=== PATIENT | male | born 1970 | race Caucasian/White ===

== ENCOUNTER 2017-12-29 18:43 | Observation (INO) | payer OTHER ==
[2017-12-29] MEDS ORDERED: ONDANSETRON 4 MG/2 ML VIAL ONE (19:24)
[2017-12-29] MEDS ORDERED: NA CHLORIDE 0.9% 1,000 ML ONE ×2 (19:24→20:58)
[2017-12-29] MEDS ORDERED: PANTOPRAZOLE 40 MG INJ ONE (19:24)
[2017-12-29] MEDS ORDERED: MORPHINE 4 MG/ML SYR ONE (19:24)
[2017-12-29 19:43] LABS: Absolute Lymphocytes (CBC) 0.8 K/uL (0.7-4.9); Absolute Monocytes 0.8 K/uL (0.1-1.3); Basophils % 0.3 % (0-1.3); Eosinophils % 0.2 % (0-4.4); Lymphocytes % 7.1 % (15.3-44.8); MCH 30.6 pg (27.0-35.0); MCV 89.7 fL (80-100); MPV 7.6 fL (7.6-11.3); Monocytes % 7.5 % (3.3-12.3); RBC Red Blood Cell Count 5.35 M/uL (4.33-5.43)
[2017-12-29 19:59] LABS: Albumin 4.1 g/dL (3.4-5.0); Bilirubin Direct 2.6 mg/dL (0-0.2); Bilirubin Total 4.7 mg/dL (0.2-1.0); Potassium 3.9 mmol/L (3.5-5.1); Protein, Total 8.3 g/dL (6.4-8.2)
--- NOTE | 2017-12-29 20:50 | ER ---
Nurse's Notes [facility] Name: Addison Marquez Age: 47 yrs Sex: Male : 1970 Arrival Date: 12/29/2017 Time: 18:46 Bed 5 Private MD: Diagnosis: Cholelithiasis;Abnormal results of liver function studies Presentation: 12/29 18:49 Presenting complaint: Patient states: RUQ abdominal pain that started yesterday. Seen aj by Dr Radford today and had ultrasound, MRI, Upper GI, and Hyda scan today. Transition of care: patient was not received from another setting of care. Onset of symptoms was December 27, 2017. Risk Assessment: Do you want to hurt yourself or someone else? Patient reports no desire to harm self or others. Initial Sepsis Screen: Does the patient meet any 2 criteria? No. Patient's initial sepsis screen is negative. Does the patient have a suspected source of infection? No. Patient's initial sepsis screen is negative. Care prior to arrival: None. 18:49 Method Of Arrival: Ambulatory aj 18:49 Acuity: SHAYAN 3 aj Triage Assessment: 18:53 General: Appears in no apparent distress. uncomfortable, Behavior is calm, cooperative, aj appropriate for age. Pain: Complains of pain in right upper quadrant. Neuro: Level of Consciousness is awake, alert, obeys commands, Oriented to person, place, time, situation, Appropriate for age. Respiratory: Airway is patent Respiratory effort is even, unlabored, Respiratory pattern is regular, symmetrical. GI: Abdomen is flat, non-distended, Reports upper abdominal pain. Derm: Skin is intact, is healthy with good turgor, Skin is pink, warm \T\ dry. normal. Historical: - Allergies: 18:53 No Known Allergies; aj - Home Meds: 18:53 verapamil 120 mg Oral C24P 1 cap once daily [Active]; Dexilant 60 mg oral CpDB 1 cap aj once daily [Active]; losartan-hydrochlorothiazide 100-12.5 mg oral tab once daily [Active]; sucralfate 1 gram Oral tab 1 tab 4 times per day [Active]; GI Cocktail [Active]; - PMHx: 18:53 Hypertension; aj - PSHx: 18:53 Hernia repair; Tonsillectomy; aj - Immunization history:: Adult Immunizations up to date. - Social history:: Smoking status: Patient/guardian denies using tobacco, Patient uses alcohol, on a daily basis. - Ebola Screening: : Patient negative for fever greater than or equal to 101.5 degrees Fahrenheit, and additional compatible Ebola Virus Disease symptoms Patient denies exposure to infectious person Patient denies travel to an Ebola-affected area in the 21 days before illness onset No symptoms or risks identified at this time. Screenin:08 Abuse screen: Denies threats or abuse. Denies injuries from another. Nutritional bp screening: No deficits noted. Tuberculosis screening: No symptoms or risk factors identified. Fall Risk None identified. Assessment: 19:00 General: Appears in no apparent distress. uncomfortable, Behavior is cooperative, bp appropriate for age, anxious. Pain: Complains of pain in right upper quadrant. Neuro: Level of Consciousness is awake, alert, obeys commands, Oriented to person, place, time, situation, Appropriate for age. Cardiovascular: No deficits noted. Respiratory: Airway is patent Respiratory effort is even, unlabored, Respiratory pattern is regular, symmetrical. GI: Bowel sounds present X 4 quads. Abd is soft X 4 quads. : No signs and/or symptoms were reported regarding the genitourinary system. EENT: No deficits noted. Derm: No deficits noted. Musculoskeletal: Circulation, motion, and sensation intact. Range of motion: intact in all extremities. 21:00 Reassessment: ALL CURRENT ORDERS COMPLETED, ADMIT IN PROCESS. bp 22:19 Reassessment: ADMIT COMPLETED, PT ADMIT TO 211 FOR CHOLELITHIASIS. bp Vital Signs: 18:53 BP 132 / 94; Pulse 103; Resp 20; Temp 97.8; Pulse Ox 98% on R/A; Weight 99.79 kg; aj Height 6 ft. 0 in. (182.88 cm); 19:08 BP 126 / 94; Pulse 97; Resp 18; Pulse Ox 98% ; bp 20:08 BP 119 / 85; Pulse 98; Resp 14; Pulse Ox 98% ; bp 20:41 BP 121 / 95; Pulse 94; Resp 18; Pulse Ox 99% on R/A; mt 22:17 BP 94 / 58; Pulse 119; Resp 16; Pulse Ox 94% ; bp 18:53 Body Mass Index 29.84 (99.79 kg, 182.88 cm) ED Course: 18:46 Patient arrived in ED. mr 18:51 Triage completed. aj 18:52 [facility]ido FNP[facility]C [facility] kb 18:52 Abimael Moreno MD is Attending Physician. kb 18:53 Arm band placed on right wrist. Patient placed in an exam room. aj 19:06 Angelo Aragon, RN is Primary Nurse. bp 19:16 Inserted saline lock: 20 gauge in right upper arm, using aseptic technique. Blood bp collected. 20:08 Patient has correct armband on for positive identification. Bed in low position. Call bp light in reach. Side rails up X2. Adult w/ patient. 20:49 Ricardo Mercado MD is Hospitalizing Provider. kb 22:16 No provider procedures requiring assistance completed. Patient admitted, IV remains in bp place. Administered Medications: 19:23 Drug: NS 0.9% 1000 ml Route: IV; Rate: 1000 ml; Site: right upper arm; lp1 20:30 Follow up: IV Status: Completed infusion; IV Intake: 1000ml bp 19:23 Drug: Zofran 4 mg Route: IVP; Site: right upper arm; lp1 20:05 Follow up: Response: Nausea is decreased bp 19:23 Drug: ProTONIX 40 mg Route: IVP; Site: right upper arm; lp1 20:05 Follow up: Response: Nausea is decreased bp 19:23 Drug: morphine 4 mg Route: IVP; Site: right upper arm; lp1 20:05 Follow up: Response: Pain is decreased bp 20:59 Drug: NS 0.9% 1000 ml Route: IV; Rate: 125 ml/hr; Site: right upper arm; bp 22:35 Follow up: IV Status: Infusion continued upon admission; IV Intake: 150ml bp 21:00 Drug: Zosyn 3.375 grams Route: IVPB; Infused Over: 60 mins; Site: right upper arm; bp 22:00 Follow up: IV Status: Completed infusion; IV Intake: 100ml bp Intake: 20:30 IV: 1000ml; Total: 1000ml. bp 22:00 IV: 100ml; Total: 1100ml. bp 22:35 IV: 150ml; Total: 1250ml. bp Outcome: 20:49 Decision to Hospitalize by Provider. kb 22:19 Condition: stable bp 22:19 Instructed on the need for admit. 22:34 Admitted to [facility]/surg accompanied by tech, family with patient, via wheelchair, room bp 211, with chart, Report called to EMILY NEWTON 22:35 Patient left the ED. bp Signatures: Kate Garrido, DELORES HALL-Lisa Roy, RN RN Bernadine Barr mr Jaky Dalal RN RN lp1 Tessa Schwartz mt, Brian, RN RN bp
--- NOTE | 2017-12-29 20:50 | EDPHYS ---
Physician Documentation [facility] Name: Addison Marquez Age: 47 yrs Sex: Male : 1970 Arrival Date: 12/29/2017 Time: 18:46 Bed 5 Private MD: ED Physician Abimael Moreno HPI: 12/29 19:45 This 47 yrs old Male presents to ER via Ambulatory with complaints of kb Abdominal Pain. 19:45 The patient presents with abdominal pain in the right upper quadrant. Onset: The kb symptoms/episode began/occurred 20 day(s) ago. The symptoms do not radiate. Associated signs and symptoms: Pertinent positives: nausea, Pertinent negatives: anorexia, blood in stools, chest pain, constipation, diarrhea, dysuria, fever, headache, hematuria, palpitations, shortness of breath, testicular pain, vomiting, vomiting blood. The symptoms are described as waxing/waning. Modifying factors: The symptoms are alleviated by nothing, the symptoms are aggravated by food, pressure. Severity of pain: At its worst the pain was moderate in the emergency department the pain is unchanged. The patient has not experienced similar symptoms in the past. The patient has been recently seen by a physician:. 20:50 Pain originally started on 12/09/17. Has had multiple studies, including HIDA scan kb (normal), labs, upper gi (gastritis, hiatal hernia), and MRCP (cholelithiasis). MRCP and upper GI were done today. Malina is pt's GI and Zakia is pt's surgeon. Has appt with Zakia at 1300 tomorrow. Historical: - Allergies: 18:53 No Known Allergies; aj - Home Meds: 18:53 verapamil 120 mg Oral C24P 1 cap once daily [Active]; Dexilant 60 mg oral CpDB 1 cap aj once daily [Active]; losartan-hydrochlorothiazide 100-12.5 mg oral tab once daily [Active]; sucralfate 1 gram Oral tab 1 tab 4 times per day [Active]; GI Cocktail [Active]; - PMHx: 18:53 Hypertension; aj - PSHx: 18:53 Hernia repair; Tonsillectomy; aj - Immunization history:: Adult Immunizations up to date. - Social history:: Smoking status: Patient/guardian denies using tobacco, Patient uses alcohol, on a daily basis. - Ebola Screening: : Patient negative for fever greater than or equal to 101.5 degrees Fahrenheit, and additional compatible Ebola Virus Disease symptoms Patient denies exposure to infectious person Patient denies travel to an Ebola-affected area in the 21 days before illness onset No symptoms or risks identified at this time. ROS: 19:45 Constitutional: Negative for fever, chills, and weight loss, Cardiovascular: Negative kb for chest pain, palpitations, and edema, Respiratory: Negative for shortness of breath, cough, wheezing, and pleuritic chest pain, Back: Negative for injury and pain, : Negative for injury, bleeding, discharge, and swelling, MS/Extremity: Negative for injury and deformity, Skin: Negative for injury, rash, and discoloration, Neuro: Negative for headache, weakness, numbness, tingling, and seizure. 19:45 Abdomen/GI: Positive for abdominal pain, nausea, Negative for vomiting, diarrhea, constipation, abdominal cramps, abdominal distension, anorexia. Exam: 19:45 Constitutional: This is a well developed, well nourished patient who is awake, alert, kb and in no acute distress. Head/Face: Normocephalic, atraumatic. Chest/axilla: Normal chest wall appearance and motion. Nontender with no deformity. No lesions are appreciated. Cardiovascular: Regular rate and rhythm with a normal S1 and S2. No gallops, murmurs, or rubs. Normal PMI, no JVD. No pulse deficits. Respiratory: Lungs have equal breath sounds bilaterally, clear to auscultation and percussion. No rales, rhonchi or wheezes noted. No increased work of breathing, no retractions or nasal flaring. Back: No spinal tenderness. No costovertebral tenderness. Full range of motion. Skin: Warm, dry with normal turgor. Normal color with no rashes, no lesions, and no evidence of cellulitis. MS/ Extremity: Pulses equal, no cyanosis. Neurovascular intact. Full, normal range of motion. Neuro: Awake and alert, GCS 15, oriented to person, place, time, and situation. Cranial nerves II-XII grossly intact. Motor strength 5/5 in all extremities. Sensory grossly intact. Cerebellar exam normal. Normal gait. 19:45 Abdomen/GI: Inspection: abdomen appears normal, Bowel sounds: normal, in all quadrants, Palpation: soft, in all quadrants, moderate abdominal tenderness, in the right upper quadrant. Vital Signs: 18:53 BP 132 / 94; Pulse 103; Resp 20; Temp 97.8; Pulse Ox 98% on R/A; Weight 99.79 kg; aj Height 6 ft. 0 in. (182.88 cm); 19:08 BP 126 / 94; Pulse 97; Resp 18; Pulse Ox 98% ; bp 20:08 BP 119 / 85; Pulse 98; Resp 14; Pulse Ox 98% ; bp 20:41 BP 121 / 95; Pulse 94; Resp 18; Pulse Ox 99% on R/A; mt 22:17 BP 94 / 58; Pulse 119; Resp 16; Pulse Ox 94% ; bp 18:53 Body Mass Index 29.84 (99.79 kg, 182.88 cm) aj MDM: 18:56 Patient medically screened. kb 19:45 Data reviewed: vital signs, nurses notes. Data interpreted: Pulse oximetry: on room air kb is 98 %. Interpretation: normal. 20:48 Counseling: I had a detailed discussion with the patient and/or guardian regarding: the kb historical points, exam findings, and any diagnostic results supporting the discharge/admit diagnosis, lab results, radiology results, the need for further work-up and treatment in the hospital. 21:03 Physician consultation: Ricardo Mercado MD was contacted at 21:03, regarding admission, kb to the medical/surgical unit. patient's condition, in the emergency department to see patient at 21:04. 21:07 Physician consultation: Eliezer Koehler MD was contacted at 20:50, regarding consult, patient's condition, Dr Robbins spoke with Dr Koehler. 12/29 19:10 Order name: Basic Metabolic Panel; Complete Time: 20:06 kb 12/29 19:10 Order name: CBC with Diff; Complete Time: 19:48 kb 12/29 19:10 Order name: Hepatic Function; Complete Time: 20:06 kb 12/29 19:10 Order name: Lipase; Complete Time: 20:06 kb 12/29 19:10 Order name: IV Saline Lock; Complete Time: 19:15 kb 12/29 19:10 Order name: Labs collected and sent; Complete Time: 19:15 kb 12/29 21:07 Order name: CONS Physician Consult EDMS Administered Medications: 19:23 Drug: NS 0.9% 1000 ml Route: IV; Rate: 1000 ml; Site: right upper arm; lp1 20:30 Follow up: IV Status: Completed infusion; IV Intake: 1000ml bp 19:23 Drug: Zofran 4 mg Route: IVP; Site: right upper arm; lp1 20:05 Follow up: Response: Nausea is decreased bp 19:23 Drug: ProTONIX 40 mg Route: IVP; Site: right upper arm; lp1 20:05 Follow up: Response: Nausea is decreased bp 19:23 Drug: morphine 4 mg Route: IVP; Site: right upper arm; lp1 20:05 Follow up: Response: Pain is decreased bp 20:59 Drug: NS 0.9% 1000 ml Route: IV; Rate: 125 ml/hr; Site: right upper arm; bp 22:35 Follow up: IV Status: Infusion continued upon admission; IV Intake: 150ml bp 21:00 Drug: Zosyn 3.375 grams Route: IVPB; Infused Over: 60 mins; Site: right upper arm; bp 22:00 Follow up: IV Status: Completed infusion; IV Intake: 100ml bp Disposition: 12/29/17 20:49 Hospitalization ordered by Ricardo Mercado for Observation. Preliminary diagnosis are Cholelithiasis, Abnormal results of liver function studies. - Bed requested for Telemetry/MedSurg (observation). - Status is Observation. bp - Condition is Stable. - Problem is new. - Symptoms are unchanged. UTI on Admission? No Addendum: 01/01/2018 19:04 Co-signature as Attending Physician, Abimael Moreno MD. r n Signatures: Dispatcher [employer] [facility] Kate Garrido, ISABEL-C HOME [employer]ER[employer]Y TEACHER-Tracee Pope RN RN kl Myers, Amanda, RN RN aj Nieto, Roman, MD MD rn Pena, Laura RN RN lp1 Angelo Aragon RN RN bp Corrections: (The following items were deleted from the chart) 12/29 21:43 20:49 Hospitalization Ordered by Ricardo Mercado MD for Observation. Preliminary kl diagnosis is Cholelithiasis; Abnormal results of liver function studies. Bed requested for Telemetry/MedSurg (observation). Status is Observation. Condition is Stable. Problem is new. Symptoms are unchanged. UTI on Admission? No. kb 22:35 21:43 12/29/2017 20:49 Hospitalization Ordered by Ricardo Mercado MD for Observation. bp Preliminary diagnosis is Cholelithiasis; Abnormal results of liver function studies. Bed requested for Telemetry/MedSurg (observation). Status is Observation. Condition is Stable. Problem is new. Symptoms are unchanged. UTI on Admission? No. kl
[2017-12-29] MEDS ORDERED: PIPER/TAZO/NS 3.375gm 3.375 GM/100 ML BAG ONE (20:58)
--- NOTE | 2017-12-29 21:29 | P.HP ---
Certification for Inpatient Patient admitted to: Inpatient With expected LOS: >2 Midnights Practitioner: I am a practitioner with admitting privileges, knowledge of patient current condition, hospital course, and medical plan of care. Services: Services provided to patient in accordance with Admission requirements found in Title 42 Section 412.3 of the Code of Federal Regulations Patient History Date of Service: 12/29/17 Reason for admission: Abdominal pain, abnormal liver enzymes, cholelithiasis History of Present Illness: Mr Marquez is a 47-year-old male with history of hypertension who start about 20 days ago with right upper quadrant pain the pain was described dull with cramps exacerbation. The pain was radiating to epigastric area and lower abdomen. He was associated with nausea but no vomiting or diarrhea. In the laboratory work he had abnormal liver enzymes. The patient went to see his at [place], he order a abdominal ultrasound which was positive for mild thickening of the gallbladder wall, sludge without signs of duct obstruction. Subsequently the patient had a HIDA scan which was negative. Since his symptoms continue getting worse, especially after eating greasy food, he was referred to see a GI specialist. He went to see Dr. Radford who performed an EGD , which according to the patient it was positive for hiatal hernia and mild gastritis. Subsequently the patient went to see a doctor lars [facility] order a MRCP. It was remarkable for cholelithiasis without sign of duct obstruction. Lab work from today was remarkable for total bilirubin 4.7, elevated transaminase and alk-phos. No fever or chills reported. Home medications list reviewed: Yes - Past Medical/Surgical History -: Hypertension - Family History Family History: Reviewed- Non-Contributory - Social History Smoking Status: Former smoker Alcohol use: Yes CD- Drugs: No Place of Residence: Home Review of Systems 10-point ROS is otherwise unremarkable Physical Examination - Physical Exam General: Alert, In no apparent distress HEENT: Atraumatic, PERRLA, Mucous membr. moist/pink, EOMI, Sclerae nonicteric Neck: Supple, 2+ carotid pulse no bruit, No LAD, Without JVD or thyroid abnormality Respiratory: Clear to auscultation bilaterally, Normal air movement Cardiovascular: Regular rate/rhythm, Normal S1 S2 Gastrointestinal: Normal bowel sounds, Tenderness (Right upper quadrant with palpation) Musculoskeletal: No tenderness Integumentary: No rashes Neurological: Normal speech, Normal strength at 5/5 x4 extr, Normal tone, Normal affect Lymphatics: No axilla or inguinal lymphadenopathy - Studies Laboratory Data (last 24 hrs) 12/29/17 19:10: WBC 10.6, Hgb 16.4, Hct 48.0, Plt Count 237 12/29/17 19:10: Sodium 138, Potassium 3.9, BUN 12, Creatinine 1.20, Glucose 138 H, Total Bilirubin 4.7 H, AST 263 H, ALT 481 H*, Alkaline Phosphatase 156 H, Lipase 166 Assessment and Plan - Plan Assessment: 1. Symptomatic cholelithiasis 2. Abnormal liver enzymes 3. Hypertension 4. Abdominal pain Plan: Will admit the patient to medical floor, keep him NPO, start IV fluids, will consult Dr. Koehler for continued follow-up and eventual cholecystectomy. Also GI specialist for potential ERCP. - Advance Directives Does patient have a Living Will: No Does patient have a Durable POA for Healthcare: No - Code Status/Comfort Care Code Status Assessed: Yes Code Status: Full Code
[2017-12-29] MEDS: NA CHLORIDE 0.9% 1,000 ML IV SCH (23:33)
[2017-12-29] MEDS ORDERED: ONDANSETRON 4 MG/2 ML VIAL IV PRN (23:33)
[2017-12-29] MEDS: MORPHINE 2 MG/ML SYR IV PRN (23:59)
[2017-12-30 04:07] LABS: Urine Appearance CLOUDY; Urine Blood 1+ (NEG); Urine Color ORANGE; Urine Glucose NEGATIVE (NEG); Urine Protein NEGATIVE (NEG)
[2017-12-30 04:25] LABS: Urine Bilirubin 2+ (NEG); Urine Microscopic Reflex ORDER UMIC
[2017-12-30] MEDS: MORPHINE 2 MG/ML SYR IV PRN ×2 (04:53→08:21)
[2017-12-30] MEDS: NA CHLORIDE 0.9% 1,000 ML IV SCH (04:57)
[2017-12-30 05:05] LABS: Absolute Lymphocytes (CBC) 0.8 K/uL (0.7-4.9); Absolute Monocytes 1.3 K/uL (0.1-1.3); Basophils % 0.4 % (0-1.3); Eosinophils % 0.3 % (0-4.4); Hematocrit 40.5 % (39.6-49.0); Lymphocytes % 8.9 % (15.3-44.8); MCH 30.9 pg (27.0-35.0); MCV 88.9 fL (80-100); MPV 7.8 fL (7.6-11.3); Monocytes % 14.5 % (3.3-12.3); RBC Red Blood Cell Count 4.55 M/uL (4.33-5.43)
[2017-12-30 05:35] LABS: Albumin 3.1 g/dL (3.4-5.0); Magnesium 2.3 mg/dL (1.8-2.4); Protein, Total 6.6 g/dL (6.4-8.2)
[2017-12-30 05:39] LABS: Bilirubin Total 5.3 mg/dL (0.2-1.0)
[2017-12-30 05:41] LABS: Urine Bacteria >50 /HPF (NONE SEEN); Urine Culture Reflex Order REFLEXED; Urine RBC <5 /HPF (NONE SEEN)
[2017-12-30] MEDS: HYDROMORPHONE HCL 1 MG/ML INJ IV PRN ×2 (10:36→14:54)
[2017-12-30] MEDS ORDERED: CEFOXITIN SODIUM 1 GM/VIAL IVPB SCH (12:00)
[2017-12-30] MEDS ORDERED: CEFOXITIN/SWI 1gm 1 GM/10 ML SYR IV SCH (12:00)
--- NOTE | 2017-12-30 13:00 | P.SSS ---
Patient History Date of Service: 12/30/17 Reason for admission: Abdominal pain, abnormal liver enzymes, cholelithiasis History of Present Illness: Mr Marquez is a 47-year-old male with history of hypertension who start about 20 days ago with right upper quadrant pain the pain was described dull with cramps exacerbation. The pain was radiating to epigastric area and lower abdomen. He was associated with nausea but no vomiting or diarrhea. In the laboratory work he had abnormal liver enzymes. The patient went to see his at [place], he order a abdominal ultrasound which was positive for mild thickening of the gallbladder wall, sludge without signs of duct obstruction. Subsequently the patient had a HIDA scan which was negative. Since his symptoms continue getting worse, especially after eating greasy food, he was referred to see a GI specialist. He went to see Dr. Radford who performed an EGD , which according to the patient it was positive for hiatal hernia and mild gastritis. Subsequently the patient went to see a doctor lars [facility] order a MRCP. It was remarkable for cholelithiasis without sign of duct obstruction. Lab work from today was remarkable for total bilirubin 4.7, elevated transaminase and alk-phos. No fever or chills reported. Allergies No Known Allergies Allergy (Unverified 12/29/17 22:03) Home Medications: Dexlansoprazole [Dexilant] 60 mg PO DAILY 12/30/17 Dicyclomine HCl 60 mg PO QID PRN 12/30/17 Losartan/Hydrochlorothiazide [Losartan-Hctz 100-12.5 mg Tab] 1 each PO DAILY Verapamil HCl [Verapamil ER] 120 mg PO DAILY 12/30/17 - Past Medical/Surgical History Has patient received pneumonia vaccine in the past: No Diabetic: No -: Hypertension -: Hernia repair -: tonsillectomy - Family History Family History: Reviewed- Non-Contributory - Social History Smoking Status: Former smoker Alcohol use: Yes CD- Drugs: No Caffeine use: Yes Place of Residence: Home Review of Systems 10-point ROS is otherwise unremarkable Physical Examination - Vital Signs Temperature: 98.2 F Blood Pressure: 112/71 Pulse: 77 Respirations: 18 Pulse Ox (%): 96 - Physical Exam General: Alert, In no apparent distress HEENT: Atraumatic, PERRLA, Mucous membr. moist/pink, EOMI, Sclerae nonicteric Neck: Supple, 2+ carotid pulse no bruit, No LAD, Without JVD or thyroid abnormality Respiratory: Clear to auscultation bilaterally, Normal air movement Cardiovascular: Regular rate/rhythm, Normal S1 S2 Gastrointestinal: Normal bowel sounds, Tenderness, Rebound Musculoskeletal: No tenderness Integumentary: No rashes Neurological: Normal gait, Normal speech, Normal strength at 5/5 x4 extr, Normal tone, Normal affect Lymphatics: No axilla or inguinal lymphadenopathy - Studies Laboratory Data (last 24 hrs) 12/29/17 19:10: WBC 10.6, Hgb 16.4, Hct 48.0, Plt Count 237 12/29/17 19:10: Sodium 138, Potassium 3.9, BUN 12, Creatinine 1.20, Glucose 138 H, Total Bilirubin 4.7 H, AST 263 H, ALT 481 H*, Alkaline Phosphatase 156 H, Lipase 166 Treatment Summary: Discharge diagnosis 1. Symptomatic cholecystitis and cholelithiasis 2. Hypertension 3. Elevated LFTs 4. Elevated T bilirubin 5. Right upper quadrant pain 6. Possible choledocholithiasis. Hospital Course Overall during the hospital course patient remained stable Patient was initially admitted to the hospital for symptomatic cholelithiasis. Patient went to a different hospital had an abdominal ultrasound which was consistent with acute cholecystitis and was given antibiotics and was discharged home asked to follow up with GI doctor who did an EGD was found to have mild gastritis at that time and was referred to surgery for further workup. Surgery ordered MRCP which was consistent with possible choledocholithiasis and cholelithiasis. Patient was admitted to the hospital for or procedure however due to not having GI specialty to do ERCP before the procedure patient was transferred to a [facility] for further care. Dr. Elder at [facility] was a GI specialist accepted the patient and patient was transferred under stable condition. - Disposition Disposition: ROUTINE DISCHARGE
--- NOTE | 2017-12-30 14:01 | CON ---
Date of Consultation: 12/30/2017 Reason: Abdominal pain, cholelithiasis, abnormal liver enzymes. History Of Present Illness: The patient is a 47-year-old gentleman, who started having approximately 2- to 3-week history of biliary colic, right upper quadrant pain going to the back, associated with nausea, but no vomiting. No bloating, belching, or heartburn. No diarrhea or constipation. No bloo d in his stool. No dysuria or hematuria. No sore throat, runny nose, cough, headaches, or dizziness . It is postprandial in nature. No fever or chills. The patient went to [place], where he had an ultrasound, which showed mild thickening without sludge, bile duct obstruction. He had a HIDA scan, which as negative, and then, he went and saw Dr. Radford, who did an EGD, which just showed some hiata l hernia and mild gastritis and esophagitis. Then, he saw me yesterday and I ordered an MRCP because of his elevated liver function tests. As the patient continued to have severe pain, he went to the ER, was admitted for further work up. He is awake and alert, complaining of right-sided abdominal pa in. Review of Systems: Otherwise unremarkable. Past Medical History: Hypertension. Past Surgical History: Hernia surgery and tonsillectomy. Allergies: NO ALLERGIES. Social History: The patient does not smoke, does drink alcohol. Family History: Noncontributory. Physical Examination: Vital signs: Stable. He is afebrile. General: He is awake, alert, and oriented x3. Head and neck: Mild icterus. Cranial nerves 2 through 12 grossly within normal limits. No neck mas ses. No JVD. Throat clear. Neck is supple. Chest: Clear. Heart: S1, S2. Abdomen: Soft. Right upper quadrant tenderness. Minimal rebound. No rigidity or guarding. Extremities: Adequately perfused. Nontender. Neuro: Nonfocal. Laboratory Data: White count is 9.2 with a left shift. Chemistry reviewed from yesterday and today. Total bilirubin is 5.3, AST is 151, ALT is 336, alkaline phosphatase is 132. The patient had an MR CP, which was reviewed with the radiologist. He does have cholelithiasis, but no radiographic eviden ce of significant biliary obstruction. Assessment: A 47-year-old gentleman with biliary colic, elevated liver function tests. Recommendations: I believe the patient requires ERCP to make sure there is no obstruction and may be nefit from a stent placement, following which a cholecystectomy could be performed, however, we do no t have a GI doctor available who does ERCP, therefore I have advised the nurse accounts payable supervisor to contact the primary care physician and initiate transfer to tertiary care, where the patient can receive the intervention he requires. CATARINA/ALANA Voice ID: [id number] Report ID: [id number]
== END 2017-12-30 15:02 | disposition short-term general hospital (02) ==
LOC: ER 18:43 → ERHOLD 21:24 → 2ND 22:07
PROVIDERS: ADMIT Internal Medicine; ATTEND Internal Medicine
DX: K80.10 Calculus of gallbladder with chronic cholecystitis without obstruction (principal); R79.89 Other specified abnormal findings of blood chemistry; I10 Essential (primary) hypertension
CPT/HCPCS: 36415; 80048; 80053; 80076; 81003; 81015; 83690; 83735; 85025; 87086; 87088; 96361; 96365; 96375; 99285; C9113; G0378; J1170; J2270; J2405; J2543; J7030